=== PATIENT | male | born 1990 | race American Indian/Alaskan Native ===

== ENCOUNTER 2020-02-21 14:17 | Emergency (ER) | payer OTHER ==
--- NOTE | 2020-02-21 14:24 | Emergency Department Report ---
Blank Doc - Documentation Documentation: 29-year-old male that presents with cough and tachycardia with body aches. Was sent by work. This initial assessment/diagnostic orders/clinical plan/treatment(s) is/are subject to change based on patient's health status, clinical progression and re- assessment by fellow clinical providers in the ED. Further treatment and workup at subsequent clinical providers discretion. Patient/guardians urged not to elope from the ED as their condition may be serious if not clinically assessed and managed. Initial orders include: 1- Patient sent to [facility] for further evaluation and treatment 2- CXR 3- flu swab
--- NOTE | 2020-02-21 15:02 | XRay Report ---
CHEST 2 VIEWS INDICATION: cough. COMPARISON: None FINDINGS: Support devices: None. Heart: Within normal limits. Lungs/pleura: No acute air space or interstitial disease. No pneumothorax. Additional findings: None. IMPRESSION: Normal chest x-ray Signer Name: Jovanny Canseco Jr, MD Signed: 02/21/2020 2:58 PM Workstation Name: [id number]
[2020-02-21 15:32] LABS: Basophils % (Auto) 0.4 % (0.0-1.8); Eosinophils % (Auto) 0.1 % (0.0-4.3); Hematocrit 49.7 % (35.5-45.6); Hemoglobin 17.2 gm/dl (11.8-15.2); Lymphocytes # (Auto) 1.3 K/mm3 (1.2-5.4); Lymphocytes % (Auto) 19.8 % (13.4-35.0); Mean Corpuscular HGB Conc 35 % (32-34); Mean Corpuscular Volume 97 fl (84-94); Monocytes # (Auto) 0.3 K/mm3 (0.0-0.8); Monocytes % (Auto) 5.3 % (0.0-7.3); Platelet Count 319 K/mm3 (140-440); Red Blood Count 5.12 M/mm3 (3.65-5.03); Red Cell Distribution Width 13.7 % (13.2-15.2)
[2020-02-21 15:51] LABS: Alanine Aminotransferase 13 units/L (7-56); Albumin 4.5 g/dL (3.9-5); BUN/Creatinine Ratio 8; Blood Urea Nitrogen 6 mg/dL (9-20); Calcium 9.4 mg/dL (8.4-10.2); Hemolysis Index 17
--- NOTE | 2020-02-21 15:55 | Emergency Department Report ---
ED General Adult HPI - General Chief complaint: Upper Respiratory Infection Stated complaint: DIABETIC CHECK/WORK NOTE Time Seen by Provider: 02/21/20 14:23 Source: patient Mode of arrival: Ambulatory Limitations: No Limitations - History of Present Illness Initial comments: Mr. Andersen is a 29-year-old -[place] male who comes to the ER after [employer] work because he was not feeling well. They told him that he needed to have a work note. Patient was diagnosed with diabetes about 7 years ago. He comes in with tachycardia to 131. He is taking 70/30 insulin and Lantus. His last A1c check was in September. He sees Dr. Corley. Patient denies any fever chills cough nausea vomiting or diarrhea. He states that he has had difficulty recently controlling his diabetes and that he spoke with his doctor yesterday and he will be following up with him. However, since he left work he needed a note today to return. - Related Data Allergies Allergy/AdvReac Type Severity Reaction Status Date / Time No Known Allergies Allergy Unverified 02/21/20 14:18 ED Review of Systems ROS: Stated complaint: DIABETIC CHECK/WORK NOTE Other details as noted in HPI Comment: All other systems reviewed and negative ED Past Medical Hx - Past Medical History Hx Diabetes: Yes - Surgical History Past Surgical History?: No - Family History Family history: no significant - Social History Smoking Status: Never Smoker Substance Use Type: None ED Physical Exam - General Limitations: No Limitations General appearance: alert, in no apparent distress - Head Head exam: Present: atraumatic, normocephalic - Eye Eye exam: Present: normal appearance - ENT ENT exam: Present: mucous membranes moist - Neck Neck exam: Present: normal inspection - Respiratory Respiratory exam: Present: normal lung sounds bilaterally. Absent: respiratory distress - Cardiovascular Cardiovascular Exam: Present: regular rate, normal rhythm. Absent: systolic murmur, diastolic murmur, rubs, gallop - GI/Abdominal GI/Abdominal exam: Present: soft, normal bowel sounds - Rectal Rectal exam: Present: deferred - Extremities Exam Extremities exam: Present: normal inspection - Back Exam Back exam: Present: normal inspection - Neurological Exam Neurological exam: Present: alert, oriented X3 - Psychiatric Psychiatric exam: Present: normal affect, normal mood - Skin Skin exam: Present: warm, dry, intact, normal color. Absent: rash ED Course Vital Signs 02/21/20 14:25 Temperature 98.8 F Pulse Rate 131 H Respiratory 16 Rate Blood Pressure 126/73 O2 Sat by Pulse 96 Oximetry - Reevaluation(s) Reevaluation #1: 02/21/20 17:07 Heart rate on reexam 100. ED Medical Decision Making - Lab Data Result diagrams: 02/21/20 15:12 02/21/20 15:12 - Radiology Data Radiology results: report reviewed, image reviewed - Medical Decision Making Lab Results 02/21/20 02/21/20 02/21/20 Range/Units 15:12 15:12 15:12 WBC 6.6 (4.5-11.0) K/mm3 RBC 5.12 H (3.65-5.03) M/mm3 Hgb 17.2 H (11.8-15.2) gm/dl Hct 49.7 H (35.5-45.6) % MCV 97 H (84-94) fl MCH 34 H (28-32) pg MCHC 35 H (32-34) % RDW 13.7 (13.2-15.2) % Plt Count 319 (140-440) K/mm3 Lymph % (Auto) 19.8 (13.4-35.0) % Morgan % (Auto) 5.3 (0.0-7.3) % Eos % (Auto) 0.1 (0.0-4.3) % Baso % (Auto) 0.4 (0.0-1.8) % Lymph # 1.3 (1.2-5.4) K/mm3 Morgan # 0.3 (0.0-0.8) K/mm3 Eos # 0.0 (0.0-0.4) K/mm3 Baso # 0.0 (0.0-0.1) K/mm3 Seg Neutrophils % 74.4 H (40.0-70.0) % Seg Neutrophils # 4.9 (1.8-7.7) K/mm3 D-Dimer 135.00 (0-234) ng/mlDDU VBG pH (7.320-7.420) Sodium 140 (137-145) mmol/L Potassium 4.0 (3.6-5.0) mmol/L Chloride 99.9 (98-107) mmol/L Carbon Dioxide 23 (22-30) mmol/L Anion Gap 21 mmol/L BUN 6 L (9-20) mg/dL Creatinine 0.8 (0.8-1.5) mg/dL Estimated GFR > 60 ml/min BUN/Creatinine Ratio 8 % Glucose 312 H (75-100) mg/dL Calcium 9.4 (8.4-10.2) mg/dL Total Bilirubin 0.20 (0.1-1.2) mg/dL AST 13 (5-40) units/L ALT 13 (7-56) units/L Alkaline Phosphatase 72 (35-129) units/L Total Protein 7.4 (6.3-8.2) g/dL Albumin 4.5 (3.9-5) g/dL Albumin/Globulin Ratio 1.6 % / Range/Units 16:19 WBC (4.5-11.0) K/mm3 RBC (3.65-5.03) M/mm3 Hgb (11.8-15.2) gm/dl Hct (35.5-45.6) % MCV (84-94) fl MCH (28-32) pg MCHC (32-34) % RDW (13.2-15.2) % Plt Count (140-440) K/mm3 Lymph % (Auto) (13.4-35.0) % Morgan % (Auto) (0.0-7.3) % Eos % (Auto) (0.0-4.3) % Baso % (Auto) (0.0-1.8) % Lymph # (1.2-5.4) K/mm3 Morgan # (0.0-0.8) K/mm3 Eos # (0.0-0.4) K/mm3 Baso # (0.0-0.1) K/mm3 Seg Neutrophils % (40.0-70.0) % Seg Neutrophils # (1.8-7.7) K/mm3 D-Dimer (0-234) ng/mlDDU VBG pH 7.361 (7.320-7.420) Sodium (137-145) mmol/L Potassium (3.6-5.0) mmol/L Chloride (98-107) mmol/L Carbon Dioxide (22-30) mmol/L Anion Gap mmol/L BUN (9-20) mg/dL Creatinine (0.8-1.5) mg/dL Estimated GFR ml/min BUN/Creatinine Ratio % Glucose (75-100) mg/dL Calcium (8.4-10.2) mg/dL Total Bilirubin (0.1-1.2) mg/dL AST (5-40) units/L ALT (7-56) units/L Alkaline Phosphatase (35-129) units/L Total Protein (6.3-8.2) g/dL Albumin (3.9-5) g/dL Albumin/Globulin Ratio % Vital Signs 02/21/20 14:25 Temperature 98.8 F Pulse Rate 131 H Respiratory 16 Rate Blood Pressure 126/73 O2 Sat by Pulse 96 Oximetry Labs noted. Given tachycardia patient was given 1 L normal saline and 3 units of subcu regular insulin. Patient has no fever. He has no chest pain or shortness of breath. X-ray noted. Patient is a poorly controlled diabetic per his history. Patient ambulatory, nontoxic and taking p.o. in the ER. Patient will be discharged to home to follow-up with primary care. - Differential Diagnosis Hyperglycemia rule out DKA Critical care attestation.: If time is entered above; I have spent that time in minutes in the direct care o f this critically ill patient, excluding procedure time. ED Disposition Clinical Impression: Hyperglycemia, History of diabetes mellitus Disposition: DC-01 TO HOME OR SELFCARE Is pt being admited?: No Does the pt Need Aspirin: No Condition: Stable Additional Instructions: CONTINUE HOME MEDS DIABETIC DIET STAY WELL HYDRATED FOLLOW UP WITH PCP Referrals: IRAIS ELIZABETH MD [Staff Physician] - 3-5 Days Forms: Work/School Release Form(ED) Time of Disposition: 16:53
[2020-02-21] MEDS ORDERED: SODIUM CHLORIDE 0.9% 1000 ML 1,000 ML IV ONE (16:10)
[2020-02-21] MEDS ORDERED: INSULIN NPH/REGULAR 70/30 INJ SUB-Q ONE (17:00)
[2020-02-21 17:15] LABS: Benzodiazepines Screen,Urine PRESUMPTIVE NEGATIVE; Cocaine Screen,Urine PRESUMPTIVE NEGATIVE; Methadone Screen,Urine PRESUMPTIVE NEGATIVE; Opiate Screen,Urine PRESUMPTIVE NEGATIVE
[2020-02-21 17:21] LABS: Bilirubin,Urine NEG (Negative); Blood,Urine NEG (Negative); Color,Urine Yellow (Yellow); Mucus,Urine FEW /HPF; Protein,Urine <15 mg/dL mg/dL (Negative); Urobilinogen,Urine < 2.0 mg/dL (<2.0)
[2020-02-21 17:28] LABS: Amphetamine Screen,Urine PRESUMPTIVE POSITIVE; Cannabinoid Screen,Urine PRESUMPTIVE POSITIVE
[2020-02-21 18:37] VITALS: BP 118/67
== END 2020-02-21 18:39 | disposition home or self-care (01) ==
LOC: ED 14:17
DX: E11.65 Type 2 diabetes mellitus with hyperglycemia (principal); R00.0 Tachycardia, unspecified; Z79.2 Long term (current) use of antibiotics; Z79.899 Other long term (current) drug therapy
CPT/HCPCS: 36415; 71046; 80053; 80307; 81001; 82010; 82805; 82962; 85025; 85379; 87086; 96360; 96372; 99284; J7030; J1815

== ENCOUNTER 2020-03-01 09:23 | Observation (INO) | payer OTHER ==
[2020-03-01] MEDS ORDERED: SODIUM CHLORIDE 0.9% 1000 ML 1,000 ML IV ONE ×2 (09:56→17:36)
--- NOTE | 2020-03-01 10:00 | Emergency Department Report ---
ED Shortness of Breath HPI - General Chief Complaint: Hyperglycemia Stated Complaint: HBS Time Seen by Provider: 03/01/20 09:56 Source: patient Mode of arrival: Ambulatory Limitations: No Limitations - History of Present Illness Initial Comments: 29-year-old F [place] male with past medical history of insulin-dependent diabetes presents emergency department complaining of a couple day history of weakness, fatigue, presyncope headache and shortness of breath and and progressively worsening episodes of confusion which he contributes to a strong possibility of diabetic ketoacidosis. States he has had similar symptoms in the past which resulted as such. States he has been trying to manage his blood sugars with the and NovoLog and Lantus however over the last few days but this feeling of weakness and fatigue has began to become increasingly stronger despite his efforts. He reports no fever, chills, sweats, hemoptysis, hematemesis, hematochezia. No chest pain no palpitations, no no vomiting but he has had some nausea. No known no dysuria, no syncope no sore throat no ear pain no rash no foreign travel. Severity: mild Improves With: nothing Worsens With: nothing Associated Symptoms: denies other symptoms Treatments Prior to Arrival: none - Related Data Allergies Allergy/AdvReac Type Severity Reaction Status Date / Time No Known Allergies Allergy Unverified 02/21/20 14:18 ED Review of Systems ROS: Stated complaint: HBS Other details as noted in HPI Comment: All other systems reviewed and negative ED Past Medical Hx - Past Medical History Previous Medical History?: Yes Hx Diabetes: Yes - Surgical History Past Surgical History?: No - Social History Smoking Status: Never Smoker Substance Use Type: None ED Physical Exam - General Limitations: No Limitations General appearance: alert, other (Sitting in bed texting on the phone when speaks speaks in full sentences however slowed with minimal distress) - Head Head exam: Present: atraumatic, normocephalic - Eye Eye exam: Present: normal appearance, PERRL, EOMI Pupils: Present: normal accommodation - ENT ENT exam: Present: normal exam, normal orophraynx, mucous membranes moist, TM's normal bilaterally, normal external ear exam. Absent: mucous membranes dry - Neck Neck exam: Present: normal inspection, full ROM, lymphadenopathy - Respiratory Respiratory exam: Present: normal lung sounds bilaterally. Absent: wheezes, rales, rhonchi, chest wall tenderness - Cardiovascular Cardiovascular Exam: Present: normal rhythm, tachycardia. Absent: systolic murmur, diastolic murmur, rubs, gallop - GI/Abdominal GI/Abdominal exam: Present: soft, normal bowel sounds - Rectal Rectal exam: Present: deferred - Extremities Exam Extremities exam: Present: normal inspection, full ROM, normal capillary refill. Absent: pedal edema, calf tenderness - Back Exam Back exam: Present: normal inspection. Absent: CVA tenderness (R), CVA tenderness (L) - Neurological Exam Neurological exam: Present: alert, oriented X3 (Appears to be slowed), CN II-XII intact, normal gait - Psychiatric Psychiatric exam: Present: normal affect, normal mood - Skin Skin exam: Present: warm, dry, intact, normal color. Absent: rash ED Course Vital Signs 03/01/20 03/01/20 03/01/20 09:27 15:01 15:35 Temperature 97.4 F L Pulse Rate 107 H 96 H Respiratory 16 18 Rate Blood Pressure 132/79 111/71 O2 Sat by Pulse 97 99 98 Oximetry - Reevaluation(s) Reevaluation #1: 03/01/20 19:14 Mr. Mcadams has remained in the ER for the last 8 hours with multiple re- evaluations and treatments. He is received 4 L of normal saline and insulin and despite aggressive therapy needs continue to show consistent weakness and malaise and various bouts of confusion lasting seconds. - Consultations Consultation #1: 03/01/20 18:10 Case discussed with attending Dr. Konstantin Camacho x2 was aware of the findings of the examination and the venous pH. Patient has received 2 L of fluid the plan is to give him another 2 L of fluid and reevaluate his venous pH of was pulled on time is definitive disposition will be obtained. ED Medical Decision Making - Lab Data Result diagrams: 03/01/20 Unknown 03/01/20 Unknown Lab Results 03/01/20 03/01/20 03/01/20 Range/Units 09:39 10:30 10:30 WBC (4.5-11.0) K/mm3 RBC (3.65-5.03) M/mm3 Hgb (11.8-15.2) gm/dl Hct (35.5-45.6) % MCV (84-94) fl MCH (28-32) pg MCHC (32-34) % RDW (13.2-15.2) % Plt Count (140-440) K/mm3 Lymph % (Auto) (13.4-35.0) % Concho % (Auto) (0.0-7.3) % Eos % (Auto) (0.0-4.3) % Baso % (Auto) (0.0-1.8) % Lymph # (1.2-5.4) K/mm3 Concho # (0.0-0.8) K/mm3 Eos # (0.0-0.4) K/mm3 Baso # (0.0-0.1) K/mm3 Seg Neutrophils % (40.0-70.0) % Seg Neutrophils # (1.8-7.7) K/mm3 VBG pH (7.320-7.420) Sodium (137-145) mmol/L Potassium (3.6-5.0) mmol/L Chloride (98-107) mmol/L Carbon Dioxide (22-30) mmol/L Anion Gap mmol/L BUN (9-20) mg/dL Creatinine (0.8-1.5) mg/dL Estimated GFR ml/min BUN/Creatinine Ratio % Glucose (75-100) mg/dL POC Glucose 203 H (70-105) Calcium (8.4-10.2) mg/dL Total Bilirubin (0.1-1.2) mg/dL AST (5-40) units/L ALT (7-56) units/L Alkaline Phosphatase (35-129) units/L Troponin T (0.00-0.029) ng/mL Total Protein (6.3-8.2) g/dL Albumin (3.9-5) g/dL Albumin/Globulin Ratio % Urine Color Straw (Yellow) Urine Turbidity Clear (Clear) Urine pH 5.0 (5.0-7.0) Ur Specific Liberty 1.022 (1.003-1.030) Urine Protein <15 mg/dl (Negative) mg/dL Urine Glucose (UA) >=500 (Negative) mg/dL Urine Ketones 80 (Negative) mg/dL Urine Blood Neg (Negative) Urine Nitrite Neg (Negative) Urine Bilirubin Neg (Negative) Urine Urobilinogen < 2.0 (<2.0) mg/dL Ur Leukocyte Esterase Neg (Negative) Urine WBC (Auto) 16.0 H (0.0-6.0) /HPF Urine RBC (Auto) 2.0 (0.0-6.0) /HPF Urine Mucus Few /HPF Urine Opiates Screen Presumptive negative Urine Methadone Screen Presumptive negative Ur Barbiturates Screen Presumptive negative Ur Phencyclidine Scrn Presumptive negative Ur Amphetamines Screen Presumptive positive U Benzodiazepines Scrn Presumptive negative Urine Cocaine Screen Presumptive negative U Marijuana (THC) Screen Presumptive positive Drugs of Abuse Note Disclamer Plasma/Serum Alcohol (0-0.07) % 03/01/20 03/01/20 03/01/20 Range/Units 13:07 14:18 14:59 WBC (4.5-11.0) K/mm3 RBC (3.65-5.03) M/mm3 Hgb (11.8-15.2) gm/dl Hct (35.5-45.6) % MCV (84-94) fl MCH (28-32) pg MCHC (32-34) % RDW (13.2-15.2) % Plt Count (140-440) K/mm3 Lymph % (Auto) (13.4-35.0) % Concho % (Auto) (0.0-7.3) % Eos % (Auto) (0.0-4.3) % Baso % (Auto) (0.0-1.8) % Lymph # (1.2-5.4) K/mm3 Concho # (0.0-0.8) K/mm3 Eos # (0.0-0.4) K/mm3 Baso # (0.0-0.1) K/mm3 Seg Neutrophils % (40.0-70.0) % Seg Neutrophils # (1.8-7.7) K/mm3 VBG pH (7.320-7.420) Sodium 136 L (137-145) mmol/L Potassium 4.7 (3.6-5.0) mmol/L Chloride 104.8 (98-107) mmol/L Carbon Dioxide 15 L (22-30) mmol/L Anion Gap 21 mmol/L BUN 9 (9-20) mg/dL Creatinine 0.7 L (0.8-1.5) mg/dL Estimated GFR > 60 ml/min BUN/Creatinine Ratio 13 % Glucose 155 H (75-100) mg/dL POC Glucose 216 H 164 H (70-105) Calcium 8.2 L (8.4-10.2) mg/dL Total Bilirubin (0.1-1.2) mg/dL AST (5-40) units/L ALT (7-56) units/L Alkaline Phosphatase (35-129) units/L Troponin T (0.00-0.029) ng/mL Total Protein (6.3-8.2) g/dL Albumin (3.9-5) g/dL Albumin/Globulin Ratio % Urine Color (Yellow) Urine Turbidity (Clear) Urine pH (5.0-7.0) Ur Specific Liberty (1.003-1.030) Urine Protein (Negative) mg/dL Urine Glucose (UA) (Negative) mg/dL Urine Ketones (Negative) mg/dL Urine Blood (Negative) Urine Nitrite (Negative) Urine Bilirubin (Negative) Urine Urobilinogen (<2.0) mg/dL Ur Leukocyte Esterase (Negative) Urine WBC (Auto) (0.0-6.0) /HPF Urine RBC (Auto) (0.0-6.0) /HPF Urine Mucus /HPF Urine Opiates Screen Urine Methadone Screen Ur Barbiturates Screen Ur Phencyclidine Scrn Ur Amphetamines Screen U Benzodiazepines Scrn Urine Cocaine Screen U Marijuana (THC) Screen Drugs of Abuse Note Plasma/Serum Alcohol (0-0.07) % 03/01/20 03/01/20 03/01/20 Range/Units 15:03 16:42 Unknown WBC 10.8 (4.5-11.0) K/mm3 RBC 5.08 H (3.65-5.03) M/mm3 Hgb 17.0 H (11.8-15.2) gm/dl Hct 49.5 H (35.5-45.6) % MCV 97 H (84-94) fl MCH 33 H (28-32) pg MCHC 34 (32-34) % RDW 13.1 L (13.2-15.2) % Plt Count 287 (140-440) K/mm3 Lymph % (Auto) 12.5 L (13.4-35.0) % Concho % (Auto) 4.5 (0.0-7.3) % Eos % (Auto) 0.0 (0.0-4.3) % Baso % (Auto) 1.1 (0.0-1.8) % Lymph # 1.3 (1.2-5.4) K/mm3 Concho # 0.5 (0.0-0.8) K/mm3 Eos # 0.0 (0.0-0.4) K/mm3 Baso # 0.1 (0.0-0.1) K/mm3 Seg Neutrophils % 81.9 H (40.0-70.0) % Seg Neutrophils # 8.8 H (1.8-7.7) K/mm3 VBG pH 7.232 L (7.320-7.420) Sodium (137-145) mmol/L Potassium (3.6-5.0) mmol/L Chloride (98-107) mmol/L Carbon Dioxide (22-30) mmol/L Anion Gap mmol/L BUN (9-20) mg/dL Creatinine (0.8-1.5) mg/dL Estimated GFR ml/min BUN/Creatinine Ratio % Glucose (75-100) mg/dL POC Glucose 140 H (70-105) Calcium (8.4-10.2) mg/dL Total Bilirubin (0.1-1.2) mg/dL AST (5-40) units/L ALT (7-56) units/L Alkaline Phosphatase (35-129) units/L Troponin T (0.00-0.029) ng/mL Total Protein (6.3-8.2) g/dL Albumin (3.9-5) g/dL Albumin/Globulin Ratio % Urine Color (Yellow) Urine Turbidity (Clear) Urine pH (5.0-7.0) Ur Specific Liberty (1.003-1.030) Urine Protein (Negative) mg/dL Urine Glucose (UA) (Negative) mg/dL Urine Ketones (Negative) mg/dL Urine Blood (Negative) Urine Nitrite (Negative) Urine Bilirubin (Negative) Urine Urobilinogen (<2.0) mg/dL Ur Leukocyte Esterase (Negative) Urine WBC (Auto) (0.0-6.0) /HPF Urine RBC (Auto) (0.0-6.0) /HPF Urine Mucus /HPF Urine Opiates Screen Urine Methadone Screen Ur Barbiturates Screen Ur Phencyclidine Scrn Ur Amphetamines Screen U Benzodiazepines Scrn Urine Cocaine Screen U Marijuana (THC) Screen Drugs of Abuse Note Plasma/Serum Alcohol (0-0.07) % 03/01/20 03/01/20 Range/Units Unknown Unknown WBC (4.5-11.0) K/mm3 RBC (3.65-5.03) M/mm3 Hgb (11.8-15.2) gm/dl Hct (35.5-45.6) % MCV (84-94) fl MCH (28-32) pg MCHC (32-34) % RDW (13.2-15.2) % Plt Count (140-440) K/mm3 Lymph % (Auto) (13.4-35.0) % Concho % (Auto) (0.0-7.3) % Eos % (Auto) (0.0-4.3) % Baso % (Auto) (0.0-1.8) % Lymph # (1.2-5.4) K/mm3 Concho # (0.0-0.8) K/mm3 Eos # (0.0-0.4) K/mm3 Baso # (0.0-0.1) K/mm3 Seg Neutrophils % (40.0-70.0) % Seg Neutrophils # (1.8-7.7) K/mm3 VBG pH (7.320-7.420) Sodium 135 L (137-145) mmol/L Potassium 5.1 H (3.6-5.0) mmol/L Chloride 93.8 L (98-107) mmol/L Carbon Dioxide 13 L (22-30) mmol/L Anion Gap 33 mmol/L BUN 9 (9-20) mg/dL Creatinine 0.6 L (0.8-1.5) mg/dL Estimated GFR > 60 ml/min BUN/Creatinine Ratio 15 % Glucose 261 H (75-100) mg/dL POC Glucose (70-105) Calcium 9.4 (8.4-10.2) mg/dL Total Bilirubin 0.80 (0.1-1.2) mg/dL AST 22 (5-40) units/L ALT 16 (7-56) units/L Alkaline Phosphatase 84 (35-129) units/L Troponin T < 0.010 (0.00-0.029) ng/mL Total Protein 8.0 (6.3-8.2) g/dL Albumin 4.9 (3.9-5) g/dL Albumin/Globulin Ratio 1.6 % Urine Color (Yellow) Urine Turbidity (Clear) Urine pH (5.0-7.0) Ur Specific Liberty (1.003-1.030) Urine Protein (Negative) mg/dL Urine Glucose (UA) (Negative) mg/dL Urine Ketones (Negative) mg/dL Urine Blood (Negative) Urine Nitrite (Negative) Urine Bilirubin (Negative) Urine Urobilinogen (<2.0) mg/dL Ur Leukocyte Esterase (Negative) Urine WBC (Auto) (0.0-6.0) /HPF Urine RBC (Auto) (0.0-6.0) /HPF Urine Mucus /HPF Urine Opiates Screen Urine Methadone Screen Ur Barbiturates Screen Ur Phencyclidine Scrn Ur Amphetamines Screen U Benzodiazepines Scrn Urine Cocaine Screen U Marijuana (THC) Screen Drugs of Abuse Note Plasma/Serum Alcohol < 0.01 (0-0.07) % - Radiology Data Radiology results: report reviewed Referring Physician:EMELIA GARCIAPatient Name:JONO CAMARGOPatient ID:[id number] of :[id number]:MaleAccession:[id number] Date:[id number] Status:[place] [address] XRay Report Signed Patient: JONO CAMARGO MR#: [id number] : 1990 Acct:[id number] Age/Sex: 29 / M ADM Date: 03/01/20 Loc: ED Attending Dr: Ordering Physician: BING ANTHONY Date of Service: 03/01/20 Procedure(s): XR chest routine 2V Accession Number(s): [id number] cc: BING ANTHONY Fluoro Time In Minutes: CHEST 2 VIEWS INDICATION: MAIN: Lightheadedness/Dizziness ; onset 2am. COMPARISON: 02/21/2020 FINDINGS: Support devices: None. Heart: Within normal limits. Lungs/pleura: No acute air space or interstitial disease. No pneumothorax. Additional findings: None. IMPRESSION: 1. No acute findings. Signer Name: Jonathan Calderon MD Signed: 03/01/2020 10:50 AM Workstation Name: [email or web address] Transcribed By: MICH Dictated By: Jonathan Calderon MD Electronically Authenticated By: Jonathan Calderon MD Signed Date/Time: 03/01/20 1050 DD/ 1049 TD/TT: Critical care attestation.: If time is entered above; I have spent that time in minutes in the direct care of this critically ill patient, excluding procedure time. ED Disposition Clinical Impression: Diabetes mellitus with ketoacidosis, Encephalopathy acute Disposition: DC-09 OP ADMIT IP TO THIS HOSP Is pt being admited?: Yes Does the pt Need Aspirin: No Condition: Stable Instructions: Diabetes Mellitus Type 2 in Adults (ED) Referrals: KURT AGUILAR MD [Primary Care Provider] - 3-5 Days
[2020-03-01 10:34] LABS: Basophils # (Auto) 0.1 K/mm3 (0.0-0.1); Basophils % (Auto) 1.1 % (0.0-1.8); Hematocrit 49.5 % (35.5-45.6); Lymphocytes # (Auto) 1.3 K/mm3 (1.2-5.4); Lymphocytes % (Auto) 12.5 % (13.4-35.0); Mean Corpuscular HGB Conc 34 % (32-34); Mean Corpuscular Volume 97 fl (84-94); Monocytes # (Auto) 0.5 K/mm3 (0.0-0.8); Monocytes % (Auto) 4.5 % (0.0-7.3); Platelet Count 287 K/mm3 (140-440); Red Blood Count 5.08 M/mm3 (3.65-5.03); Red Cell Distribution Width 13.1 % (13.2-15.2)
[2020-03-01 10:51] LABS: Bilirubin,Urine NEG (Negative); Blood,Urine NEG (Negative); Color,Urine Straw (Yellow); Mucus,Urine FEW /HPF; Protein,Urine <15 mg/dL mg/dL (Negative); Urobilinogen,Urine < 2.0 mg/dL (<2.0)
--- NOTE | 2020-03-01 10:54 | XRay Report ---
CHEST 2 VIEWS INDICATION: MAIN: Lightheadedness/Dizziness ; onset 2am. COMPARISON: 02/21/2020 FINDINGS: Support devices: None. Heart: Within normal limits. Lungs/pleura: No acute air space or interstitial disease. No pneumothorax. Additional findings: None. IMPRESSION: 1. No acute findings. Signer Name: Jonathan Calderon MD Signed: 03/01/2020 10:50 AM Workstation Name: [id number]
[2020-03-01 10:57] LABS: Benzodiazepines Screen,Urine PRESUMPTIVE NEGATIVE; Cocaine Screen,Urine PRESUMPTIVE NEGATIVE; Methadone Screen,Urine PRESUMPTIVE NEGATIVE; Opiate Screen,Urine PRESUMPTIVE NEGATIVE
[2020-03-01 10:59] LABS: Alanine Aminotransferase 16 units/L (7-56); Albumin 4.9 g/dL (3.9-5); BUN/Creatinine Ratio 15; Blood Urea Nitrogen 9 mg/dL (9-20); Calcium 9.4 mg/dL (8.4-10.2); Hemolysis Index 50
[2020-03-01 11:10] LABS: Amphetamine Screen,Urine PRESUMPTIVE POSITIVE; Cannabinoid Screen,Urine PRESUMPTIVE POSITIVE
[2020-03-01] MEDS ORDERED: SODIUM CHLORIDE 0.9% 1000 ML 2,000 ML IV ONE (11:35)
[2020-03-01] MEDS ORDERED: INSULIN REGULAR, HUMAN 100 UNITS/1 ML IV ONE (11:36)
[2020-03-01 15:58] LABS: BUN/Creatinine Ratio 13; Blood Urea Nitrogen 9 mg/dL (9-20); Calcium 8.2 mg/dL (8.4-10.2); Hemolysis Index 10
[2020-03-01] MEDS ORDERED: SODIUM CHLORIDE 0.9% 1000 ML 1,000 ML ONE (16:41)
[2020-03-01] MEDS ORDERED: ACETAMINOPHEN 325 MG TAB PO PRN (19:11)
[2020-03-01] MEDS ORDERED: ONDANSETRON 4 MG/2 ML INJ IV PRN (19:11)
--- NOTE | 2020-03-01 19:11 | History and Physical Report ---
History of Present Illness Chief complaint: I just feel weak and tired History of present illness: 29 YO Male with DM presents to ED for evaluation. As per ED staff, the patient pt states that he has experienced weakness, fatigue, polydipsia, polyuria over the past 2 days with persistent symptoms over the same time frame. Patient transported to [facility] via private vehicle. Patient seen and evaluated in the emergency department. Lab and imaging studies reviewed. At time of by my exam the patient was found to be confused and lethargic and unable to provide detailed history. Patient found to have uncontrolled diabetes mellitus, metabolic acidosis, as well as metabolic encephalopathy. Patient was treated in the emergency department with insulin therapy with persistent acidosis. Patient placed in observation status and admitted to medical floor due to increased risk of decompensation. Patient treated with IV fluid resuscitation therapy, IV bicarbonate therapy, and high-dose insulin sliding scale therapy. No prior admission for review. No medication listed at time of admission for reconciliation. Past History Past Medical History: diabetes, other (See HPI) Past Surgical History: No surgical history, Other (Reviewed) Social history: , lives with family. denies: smoking, alcohol abuse, prescription drug abuse Family history: diabetes, hypertension Medications and Allergies Allergies Allergy/AdvReac Type Severity Reaction Status Date / Time No Known Allergies Allergy Unverified 02/21/20 14:18 Review of Systems ROS unobtainable: due to mental status Exam - Constitutional Vitals: Temp Pulse Resp BP Pulse Ox 97.4 F L 96 H 18 111/71 98 03/01/20 09:27 03/01/20 15:35 03/01/20 15:01 03/01/20 15:35 03/01/20 15:35 General appearance: Present: mild distress, well-nourished - EENT Eyes: Present: PERRL ENT: hearing intact, clear oral mucosa, other (Oral mucosa dry) - Neck Neck: Present: supple, normal ROM - Respiratory Respiratory effort: normal Respiratory: bilateral: CTA - Cardiovascular Heart Sounds: Present: S1 & S2. Absent: rub, click - Extremities Extremities: pulses symmetrical, No edema Peripheral Pulses: within normal limits - Abdominal General gastrointestinal: Present: soft, non-tender, non-distended, normal bowel sounds Male genitourinary: Present: normal - Integumentary Integumentary: Present: dry, clammy, decreased turgor - Musculoskeletal Musculoskeletal: generalized weakness - Psychiatric Psychiatric: no appropriate mood/affect, no intact judgment & insight, no memory intact - Neurologic Neurologic: CNII-XII intact, moves all extremities Results - Labs CBC & Chem 7: 03/01/20 Unknown 03/01/20 Unknown Labs: Abnormal lab results 03/01/20 03/01/20 03/01/20 Range/Units 09:39 10:30 13:07 RBC (3.65-5.03) M/mm3 Hgb (11.8-15.2) gm/dl Hct (35.5-45.6) % MCV (84-94) fl MCH (28-32) pg RDW (13.2-15.2) % Lymph % (Auto) (13.4-35.0) % Seg Neutrophils % (40.0-70.0) % Seg Neutrophils # (1.8-7.7) K/mm3 VBG pH (7.320-7.420) Sodium (137-145) mmol/L Potassium (3.6-5.0) mmol/L Chloride (98-107) mmol/L Carbon Dioxide (22-30) mmol/L Creatinine (0.8-1.5) mg/dL Glucose (75-100) mg/dL POC Glucose 203 H 216 H (70-105) Calcium (8.4-10.2) mg/dL Urine WBC (Auto) 16.0 H (0.0-6.0) /HPF 03/01/20 03/01/20 03/01/20 Range/Units 14:18 14:59 15:03 RBC (3.65-5.03) M/mm3 Hgb (11.8-15.2) gm/dl Hct (35.5-45.6) % MCV (84-94) fl MCH (28-32) pg RDW (13.2-15.2) % Lymph % (Auto) (13.4-35.0) % Seg Neutrophils % (40.0-70.0) % Seg Neutrophils # (1.8-7.7) K/mm3 VBG pH (7.320-7.420) Sodium 136 L (137-145) mmol/L Potassium (3.6-5.0) mmol/L Chloride (98-107) mmol/L Carbon Dioxide 15 L (22-30) mmol/L Creatinine 0.7 L (0.8-1.5) mg/dL Glucose 155 H (75-100) mg/dL POC Glucose 164 H 140 H (70-105) Calcium 8.2 L (8.4-10.2) mg/dL Urine WBC (Auto) (0.0-6.0) /HPF 03/01/20 03/01/20 03/01/20 Range/Units 16:42 18:45 Unknown RBC 5.08 H (3.65-5.03) M/mm3 Hgb 17.0 H (11.8-15.2) gm/dl Hct 49.5 H (35.5-45.6) % MCV 97 H (84-94) fl MCH 33 H (28-32) pg RDW 13.1 L (13.2-15.2) % Lymph % (Auto) 12.5 L (13.4-35.0) % Seg Neutrophils % 81.9 H (40.0-70.0) % Seg Neutrophils # 8.8 H (1.8-7.7) K/mm3 VBG pH 7.232 L 7.224 L (7.320-7.420) Sodium (137-145) mmol/L Potassium (3.6-5.0) mmol/L Chloride (98-107) mmol/L Carbon Dioxide (22-30) mmol/L Creatinine (0.8-1.5) mg/dL Glucose (75-100) mg/dL POC Glucose (70-105) Calcium (8.4-10.2) mg/dL Urine WBC (Auto) (0.0-6.0) /HPF 03/01/20 Range/Units Unknown RBC (3.65-5.03) M/mm3 Hgb (11.8-15.2) gm/dl Hct (35.5-45.6) % MCV (84-94) fl MCH (28-32) pg RDW (13.2-15.2) % Lymph % (Auto) (13.4-35.0) % Seg Neutrophils % (40.0-70.0) % Seg Neutrophils # (1.8-7.7) K/mm3 VBG pH (7.320-7.420) Sodium 135 L (137-145) mmol/L Potassium 5.1 H (3.6-5.0) mmol/L Chloride 93.8 L (98-107) mmol/L Carbon Dioxide 13 L (22-30) mmol/L Creatinine 0.6 L (0.8-1.5) mg/dL Glucose 261 H (75-100) mg/dL POC Glucose (70-105) Calcium (8.4-10.2) mg/dL Urine WBC (Auto) (0.0-6.0) /HPF Assessment and Plan - Patient Problems (1) Uncontrolled diabetes mellitus Current Visit: Yes Status: Acute Qualifiers: Diabetes mellitus type: type 1 Plan to address problem: Sliding scale insulin therapy, IV fluid resuscitation therapy, monitor urine output every shift, Accu-Chek every 6 hours, high-dose insulin therapy, hemoglobin A1c, (2) Metabolic acidosis Current Visit: Yes Status: Acute Plan to address problem: IV bicarbonate therapy, BMP, repeat BMP in a.m., IV fluid resuscitation therapy (3) Metabolic encephalopathy Current Visit: Yes Status: Acute Plan to address problem: Neuro check, seizure precaution, aspiration precaution, treat uncontrolled diabetes, n.p.o. until awake and alert and oriented and able to tolerate oral diet. (4) DVT prophylaxis Current Visit: Yes Status: Acute Plan to address problem: SCD to bilateral lower extremities while in bed, prophylactic heparin.
[2020-03-01] MEDS ORDERED: DEXTROSE 50% IN WATER (25GM) 50 ML SYRINGE IV PRN (19:14)
--- NOTE | 2020-03-01 19:14 | Event Note ---
Face to Face: For this encounter I have reviewed the PA/[employer]ATION [employer]AF[employer] OFFICER documentation, treatment plan, medical decision making, and I had face to face time with this patient. Patient is a 29-year-old gentleman who is presenting with elevated glucose. Patient states for the last several days he has had some weakness fatigue and mild confusion. Blood glucose was noted to be elevated but more importantly the patient had 80 ketones in his urine and a widened anion gap. Patient bicarb is low in the teens. After 4 L of fluid here in the emergency department the patie nt is continued to have no significant improvement of his pH. Anion gap is still widened. Patient will need observation for continued management.
[2020-03-01] MEDS ORDERED: SODIUM BICARB 8.4% 50 MEQ/50 ML SYRINGE IV ONE ×2 (20:00→20:14)
[2020-03-01 21:48] LABS: Creatinine,Urine 35.7 mg/dL (0.1-20.0)
[2020-03-01 21:52] LABS: Microalbumin/Creatinine Ratio 33.6 ug/mg
[2020-03-01] MEDS: SODIUM CHLORIDE 0.9% 1000 ML 1,000 ML IV SCH (23:02)
[2020-03-01] MEDS: HEPARIN 5,000 UNIT/1 ML VIAL SUB-Q SCH (23:02)
[2020-03-02] MEDS: INSULIN LISPRO 100 UNIT/ML SUB-Q SCH ×3 (00:32→11:15)
[2020-03-02 05:19] LABS: BUN/Creatinine Ratio 12; Blood Urea Nitrogen 7 mg/dL (9-20); Calcium 8.2 mg/dL (8.4-10.2); Hemolysis Index 18
[2020-03-02] MEDS: SODIUM CHLORIDE 0.9% 1000 ML 1,000 ML IV SCH ×2 (05:32→11:27)
[2020-03-02 08:38] VITALS: BP 110/66
[2020-03-02] MEDS: HEPARIN 5,000 UNIT/1 ML VIAL SUB-Q SCH (11:17)
--- NOTE | 2020-03-02 17:10 | Progress Note ---
Assessment and Plan - Patient Problems (1) DVT prophylaxis Current Visit: Yes Status: Acute (2) Diabetes mellitus with ketoacidosis Current Visit: Yes Status: Acute Qualifiers: Diabetes mellitus type: type 1 Plan to address problem: DKA mild Patient initiated on Lantus 50 units at nighttime Humalog 6 units before each meal Decrease IV fluids 200 cc an hour Patient counseled about diabetes and about basal bolus insulin His A1c is high around 10.7 (3) Metabolic acidosis Current Visit: Yes Status: Acute Plan to address problem: Improving (4) DVT prophylaxis Current Visit: Yes Status: Acute Plan to address problem: On heparin and GI prophylaxis Subjective Date of service: 03/02/20 Principal diagnosis: DKA Interval history: Patient was admitted in mild DKA telemetry floor Patient still a bit nauseous Patient feels a bit short of breath Patient has been taking Lantus insulin to 30 and is confused about the dosages He takes 50 units of Lantus and 7030 according to sliding scale Patient counseled about basal bolus insulin Objective - Constitutional Vitals: Vital Signs - 12hr 03/02/20 03/02/20 05:49 08:34 Temperature 98.4 F 98.1 F Pulse Rate 86 86 Respiratory 20 18 Rate Blood Pressure 96/49 110/66 O2 Sat by Pulse 98 97 Oximetry General appearance: Present: no acute distress, well-nourished - EENT Eyes: PERRL, EOM intact ENT: hearing intact, clear oral mucosa Ears: bilateral: normal - Neck Neck: supple, normal ROM - Respiratory Respiratory effort: normal Respiratory: bilateral: CTA - Breasts Breasts: normal - Cardiovascular Heart rate: 70 Rhythm: regular Heart Sounds: Present: S1 & S2. Absent: gallop, rub Extremities: pulses intact, No edema, normal color, Full ROM - Gastrointestinal General gastrointestinal: Present: soft, non-tender, non-distended, normal bowel sounds - Genitourinary Male genitourinary: normal - Integumentary Integumentary: clear, warm, dry - Musculoskeletal Musculoskeletal: 1, strength equal bilaterally - Neurologic Neurologic: moves all extremities - Psychiatric Psychiatric: memory intact, appropriate mood/affect, intact judgment & insight - Labs CBC & Chem 7: 03/01/20 Unknown 03/02/20 04:00 Labs: Abnormal lab results 03/01/20 03/01/20 03/01/20 Range/Units 16:42 18:45 19:00 VBG pH 7.232 L 7.224 L (7.320-7.420) Sodium (137-145) mmol/L Carbon Dioxide (22-30) mmol/L BUN (9-20) mg/dL Creatinine (0.8-1.5) mg/dL Glucose (75-100) mg/dL POC Glucose (70-105) Hemoglobin A1c 10.7 H (4-6) % Calcium (8.4-10.2) mg/dL Urine Creatinine (0.1-20.0) mg/dL 03/01/20 03/01/20 03/02/20 Range/Units 23:49 Unknown 04:00 VBG pH (7.320-7.420) Sodium 132 L (137-145) mmol/L Carbon Dioxide 12 L (22-30) mmol/L BUN 7 L (9-20) mg/dL Creatinine 0.6 L (0.8-1.5) mg/dL Glucose 185 H (75-100) mg/dL POC Glucose 173 H (70-105) Hemoglobin A1c (4-6) % Calcium 8.2 L (8.4-10.2) mg/dL Urine Creatinine 35.7 H (0.1-20.0) mg/dL 03/02/20 Range/Units 06:29 VBG pH (7.320-7.420) Sodium (137-145) mmol/L Carbon Dioxide (22-30) mmol/L BUN (9-20) mg/dL Creatinine (0.8-1.5) mg/dL Glucose (75-100) mg/dL POC Glucose 179 H (70-105) Hemoglobin A1c (4-6) % Calcium (8.4-10.2) mg/dL Urine Creatinine (0.1-20.0) mg/dL
[2020-03-02] MEDS ORDERED: SODIUM CHLORIDE 0.9% 1000 ML 1,000 ML IV SCH (17:15)
[2020-03-02] MEDS ORDERED: INSULIN GLARGINE 100 UNITS/ML SUB-Q SCH (22:00)
[2020-03-03] MEDS ORDERED: INSULIN LISPRO 100 UNIT/ML SUB-Q SCH (07:30)
--- NOTE | 2020-03-03 09:42 | Discharge Summary ---
Providers - Providers Date of Admission: 03/01/20 19:42 Date of discharge: 03/02/20 Attending physician: ROBY HILLMAN [facility] Condition: Stable Hospital course: Patient was admitted in mild DKA telemetry floor Patient still a bit nauseous Patient feels a bit short of breath Patient has been taking Lantus insulin to 30 and is confused about the dosages He takes 50 units of Lantus and 7030 according to sliding scale Patient counseled about basal bolus insulin (1) Diabetes mellitus with ketoacidosis Current Visit: Yes Status: Acute Qualifiers: Diabetes mellitus type: type 1 Plan to address problem: DKA mild Patient initiated on Lantus 50 units at nighttime Humalog 6 units before each meal Decrease IV fluids 200 cc an hour Patient counseled about diabetes and about basal bolus insulin His A1c is high around 10.7 (2) Metabolic acidosis Current Visit: Yes Status: Acute Plan to address problem: Improving Patient signed out AMA Subjective Date of service: 03/02/20 Principal diagnosis: DKA Interval history: Disposition: - LEFT AGAINST MED ADVICE - Discharge Diagnoses (1) DVT prophylaxis Status: Acute (2) Diabetes mellitus with ketoacidosis Status: Acute Qualifiers: Diabetes mellitus type: type 1 (3) Metabolic acidosis Status: Acute (4) DVT prophylaxis Status: Acute Core Measure Documentation - Palliative Care Palliative Care/ Comfort Measures: Not Applicable - Core Measures Any of the following diagnoses?: none Exam - Constitutional Vitals: Temp Pulse Resp BP Pulse Ox 98.1 F 80 18 110/66 98 03/02/20 08:34 03/02/20 10:00 03/02/20 10:00 03/02/20 08:34 03/02/20 10:00 General appearance: Present: no acute distress, well-nourished - EENT Eyes: Present: PERRL ENT: hearing intact, clear oral mucosa - Neck Neck: Present: supple, normal ROM - Respiratory Respiratory effort: normal Respiratory: bilateral: CTA - Cardiovascular Heart Sounds: Present: S1 & S2. Absent: rub, click - Extremities Extremities: pulses symmetrical, No edema Peripheral Pulses: within normal limits - Abdominal General gastrointestinal: Present: soft, non-tender, non-distended, normal bowel sounds Male genitourinary: Present: normal - Integumentary Integumentary: Present: clear, warm, dry - Musculoskeletal Musculoskeletal: gait normal, strength equal bilaterally - Psychiatric Psychiatric: appropriate mood/affect, intact judgment & insight - Neurologic Neurologic: CNII-XII intact, moves all extremities Plan Activity: no restrictions Diet: diabetic Follow up with: KURT AGUILAR MD [Primary Care Provider] - 3-5 Days Forms: AMA Form
== END 2020-03-02 19:00 | disposition left against medical advice (07) ==
LOC: ED 09:23 → 4A 19:42
PROVIDERS: ADMIT Internal Medicine; ATTEND Internal Medicine
DX: E11.65 Type 2 diabetes mellitus with hyperglycemia (principal); E87.2 Acidosis; G93.41 Metabolic encephalopathy; E11.10 Type 2 diabetes mellitus with ketoacidosis without coma
CPT/HCPCS: 36415; 71046; 80048; 80053; 80307; 81001; 82043; 82805; 82962; 83036; 84484; 85025; 87086; 87116; 93005; 93010; 96361; 96372; 96374; 96375; 99285; G0378; J1644; J7030; 80320; G0480; J1815